=== PATIENT | male | born 1985 | race Caucasian/White ===

== ENCOUNTER → 2022-11-07 15:49 | Outpatient (CLI) | payer OTHER, SELFPAY ==
--- NOTE | ~2022-11-07 | XR_ITS ---
EXAM: XR abdomen/kub 1V DATE: 11/07/2022 16:20 HISTORY: Calculus of kidney . COMPARISON: None available. FINDINGS: Clear lung bases. Normal bowel gas pattern. No organomegaly. 11 mm calcification projectin g over the medial aspect of the right kidney midpole. Degenerative change in the lumbar spine. IMPRESSION: Right nephrolithiasis. Comparison to outside studies would be helpful, if available. Reviewed, dictated and finalized at location K. IMPRESSION: Right nephrolithiasis. Comparison to outside studies would be helpf ul, if available.
== END ==
PROVIDERS: PCP Internal Medicine; Visit Provider Nurse Practitioner Adult Health
DX: N20.0 Calculus of kidney (principal)
CPT/HCPCS: 74018

== ENCOUNTER 2022-11-11 10:35 | Day surgery (SDC) | payer OTHER, SELFPAY ==
[2022-11-11] VITALS (7 sets, daily range): BP systolic 109–149; BP diastolic 68–91; PULSE 88–107; RESP 16–20; TEMP 36.8–36.9; O2SAT 95–99; BMI 32.3
--- NOTE | ~2022-11-11 | XR_ITS ---
Supine and upright views of the abdomen Clinical history: Lithotripsy Findings: Bowel gas pattern is nonspecific. No evidence for obstruction or free air. 9 mm stone prese nt at the right renal pelvis region or proximal right ureter. Suspected additional right upper pole r enal stones.. Osseous structures are intact. Impression: 9 mm stone at the right renal pelvis or proximal right ureter. Probable additional right upper pole renal stones. Reviewed, dictated and finalized at location M. Impression: 9 mm stone at the right renal pelvis or proximal right ureter. Probable additional right upper pole renal stones.
--- NOTE | 2022-11-11 08:58 | PC.NURSE ---
Report to the Outpatient Waiting Room, entrance under the green pavilion located off [facility], at time 1030 on date 11/11/22. Planned Procedure Time: 1230. Time changes happen often and if your time is changed the preop area will call you the afternoon before. - You and your visitor will be asked to self-screen and do not enter if you have any COVID symptoms. - Only one visitor is requested with a max of two and NO children visitors are allowed at this time. - The patient visitor may be requested to leave or wait in car when not with patient due to distancing restrictions. - A mask is optional within the hospital at this time. Patients may have clear liquids (water, carbonated beverages, clear teas, apple juice) until 3 hours prior to surgery with a maximum of 20 ounces. - No food from midnight until time of surgery Take the following medications with a SIP of water the morning of surgery: LORAZEPAM, PAIN PILL DO NOT STOP ANY OF YOUR OTHER PRESCRIPTION MEDICATIONS PRIOR TO SURGERY?EXCEPT THE FOLLOWING Medications to discontinue per physician: N/A Date to take last dose: N/A Please no make-up, nail ivorian, hairspray, perfume, deodorant, or body powder the day of surgery. No jewelry (including any body piercings) or valuables the day of surgery, leave them at home. Please take a shower or bath the night before, or the morning of, surgery with an antibacterial soap. Wear comfortable, loose fitting clothing. - Jewelry must be removed prior to entering the operating room. Rings and piercings that are not removed may be cut off. - The hospital will not accept responsibility for valuables. - Please leave all valuables, including medications, at home the day of surgery. If you are going home after surgery, a licensed automation driver must drive you home. - NO public transportation without another adult if you receive anesthesia. - We recommend that an adult stay with you for 24 hours following discharge. - We also recommend that you do not drive, make important decision, drink alcoholic beverages, or take any drugs that were not prescribed by your health care provider for at least 24 hours after your discharge time. Follow any additional instructions given to you from your surgeon. If you or anyone in your household have experienced Covid symptoms in the past week, please notify your surgeon or the nurse liaison at the phone number below for possible testing. Telephone instructions given to PT - KATLYN MTZ and asked if any additional questions and then verbalized understanding. Patient advised to call surgeon office or pre surgery nurse liaison [phone] if any additional questions.
[2022-11-11] MEDS: LACTATED RINGERS 1,000 ML 30 ML IV CONT ×2 (11:00→13:50)
[2022-11-11 11:08] LABS: Appearance Urine Clear (Clear); Bacteria Urine None Seen /hpf; Bilirubin Urine Negative (Negative); Blood Urine 1+ (Negative); Color Urine Yellow (Yellow); Glucose Urine UA Negative (Negative); Ketones Urine Negative (Negative); Leukocyte Esterase Ur Negative LEU/UL (Negative); Nitrate Urine Negative (Negative); Non Pathogenic Casts 0-2; Protein Urine Trace mg/dL (Negative); Specific Grav Ur 1.022 (1.001-1.035); Squamous Epithelial Cell Urine None seen /hpf (Few); Urobilinogen Urine 0.2 mg/dL (<2.0); WBC Urine 0-5 /hpf; pH Urine 5.5 (5.0-9.0)
[2022-11-11 11:16] LABS: Add Urine Microscopic? YES
[2022-11-11 11:23] LABS: Prothrombin Time 12.6 Seconds (11.1-14.7)
[2022-11-11 11:25] LABS: Partial Thromboplastin Time 28.3 SECONDS (22.3-36.8)
--- NOTE | 2022-11-11 12:41 | WPDANESEPPF ---
Anes - Initial Pre Proc Eval Procedure: Operation Date: 11/11/22 12:30 Proposed Procedures p Right Extracorporeal Shock Wave Lithotripsy - Hua De Jesus MD Date/Time: 11/11/22 12:41 Surgeon: uHa De Jesus MD Pre Op Diagnosis: renal stones Patient Data Age: 37 Gender: M Height: 1.83 m Weight: 102.9 kg Last Vital Signs Temp 36.9 C 11/11/22 11:09 Pulse 96 11/11/22 11:09 Resp 16 11/11/22 11:09 BP 126/75 11/11/22 11:09 Pulse Ox 98 11/11/22 11:09 O2 Del Method Room Air 11/11/22 11:09 Allergies Allergy/AdvReac Type Severity Reaction Status Date / Time gabapentin AdvReac Severe Other Verified 11/11/22 10:39 Home Medications Medication Instructions Recorded Confirmed Type hydrocodone 7.5 mg-acetaminophen 1 tablet PO BID PRN Pain 11/11/22 11/11/22 History 325 mg tablet lorazepam 1 mg tablet 1 mg PO BID PRN Anxiety 11/11/22 11/11/22 History Laboratory Tests 11/11/22 11/11/22 10:53 11:04 PT 12.6 Seconds Seconds (11.1-14.7) INR 1.0 APTT 28.3 SECONDS SECONDS (22.3-36.8) Urine Color Yellow (Yellow) Urine Appearance Clear (Clear) Urine pH 5.5 (5.0-9.0) Ur Specific [place] 1.022 (1.001-1.035) Urine Protein Trace mg/dL mg/dL (Negative) Urine Glucose (UA) Negative mg/dL mg/dL (Negative) Urine Ketones Negative mg/dL mg/dL (Negative) Ur Blood (Man) 1+ H (Negative) Urine Nitrate Negative (Negative) Urine Bilirubin Negative (Negative) Urine Urobilinogen 0.2 mg/dL mg/dL (<2.0) Leukocyte Esterase Rfl Negative MORENO/UL MORENO/UL (Negative) Urine RBC 6-10 /hpf H /hpf (0-2) Urine WBC 0-5 /hpf /hpf Ur Squamous Epith Cells None seen /hpf /hpf (Few) Urine Bacteria None seen /hpf /hpf Urine Casts 0-2 Patient hx anesthesia problems: none Family hx anesthesia problems: none Results Review: All pre-operative results and documents have been reviewed as part of the pre-operative evaluation. [facility] Social History Social History Smoking packs per day: 0.75 Smoking cigarettes per day: 15.0 Years smoked: 15 Smoking pack-years: 11.25 Smoking status: Current every day smoker Tobacco type: cigarettes Alcohol intake: never Substance use: never Substance use type: does not use Living arrangements: with family Spiritual care concerns: No Anes - Eval Final PreProcedure Day of Procedure 11/11/22 12:41 Patient weight: obese Heart: regular rate and rhythm Lungs: decreased breath sounds Airway: Mallampati scale class II Neurological: alert and oriented Last oral intake: >/= 8 hours ASA classification: III Emergent: no Anesthetic plan: proceed Anesthesia type and monitoring: general LMA and standard monitoring Results Review: All pre-operative results and documents have been reviewed as part of the pre-operative evaluation. Informed Consent: The patient's anesthetic plan and its attendant risks and benefits were discussed with the patient/family/POA. Questions were solicited and answers provided to the satisfaction of the patient/family/POA.
--- NOTE | 2022-11-11 12:53 | WPDHPUPDATE1 ---
History and Physical Update Update Date/Time: 11/11/22 12:53 History and Physical has been reviewed, including an updated exam of the patient. There are NO changes in the patient's condition. Risks, benefits, and alternatives have been discussed and questions answered. Patient agrees to proceed with procedure.
[2022-11-11] MEDS: ceFAZolin 2 GM/D5W 50 ML 2 GM/50 ML BAG IVPB (12:54)
--- NOTE | 2022-11-11 13:24 | W.PM.PROC2 ---
Procedure Note - Detailed Date of Procedure 11/11/22 Pre-op Diagnosis Right renal stones Post-op Diagnosis Same Procedure Performed Right [facility] Surgeon Hua De Jesus MD Anesthesia General Description of Procedure The patient was brought to the operative suite where he was placed in the supine position on the Dornier lithotripsy table. The focal point of the lithotripter was placed at a 9-10mm right renal calculus. A total of 2500 shocks were delivered at a power setting of 4. There appeared to be good fragmentation of the stone. The patient tolerated the procedure well and was taken to the recovery room in good condition. Drains No Packing No Pathology None sent Complications No immediate complications
[2022-11-11] MEDS: fentaNYL CITRATE INJ (*CRX) 100 MCG/2 ML VIAL 25 MCG IV PUSH ×4 (14:06→14:19)
[2022-11-11] MEDS: oxyCODONE HCL (*CRX) 5 MG TAB IR PO (14:59)
== END 2022-11-11 15:35 | disposition home or self-care (01) ==
LOC: ANHSURGERY 15:41
PROVIDERS: PCP Internal Medicine; Visit Provider Urology
PROC: (CPT 50590; principal; 2022-11-11 12:30)
DX: N20.0 Calculus of kidney (principal); R31.9 Hematuria, unspecified; F17.210 Nicotine dependence, cigarettes, uncomplicated; E66.9 Obesity, unspecified; Z68.30 Body mass index [BMI] 30.0-30.9, adult
CPT/HCPCS: 50590; 36415; 74018; 81001; 85610; 85730; A9270; J0690; J1100; J2250; J2405; J2704; J3010; J7120

== ENCOUNTER 2022-11-24 10:34 | Emergency (ER) | payer OTHER, SELFPAY ==
--- NOTE | ~2022-11-24 | CT_ITS ---
EXAMINATION: CT abdomen pelvis w con DATE: 11/24/2022 14:24 INDICATION: Right abdominal pain. TECHNIQUE: Computed tomography (CT) of the abdomen and pelvis was performed with 100 mL Omnipaque 350 intravenous contrast. Automated exposure control and iterative reconstruction technique were employe d. The dose-length product was 707.12 mGy-cm. COMPARISON: None. FINDINGS: The visualized portions of the lung bases demonstrate mild atelectasis. No pleural effusion . The heart size is normal. No pericardial effusion. The liver, gallbladder, spleen, pancreas, adrena l glands, and left kidney are normal. There are 5 stones in right kidney measuring up to 4 mm. There is mild right hydronephrosis. There is a 6 mm stone in proximal right ureter. The appendix measures u p to 8 mm in diameter. The blind end of the appendix measures 6 mm in diameter. There are no patholog ically enlarged lymph nodes. There is no free intraperitoneal fluid. There is moderate lumbar spondyl osis. IMPRESSION: 1. 6 mm stone in proximal right ureter with mild right hydronephrosis. 2. Nonobstructing right kidney stones. 3. Appendiceal diameter of 8 mm, but no inflammation to suggest appendicitis. Reviewed, dictated and finalized at location A.
--- NOTE | ~2022-11-24 | XR_ITS ---
EXAMINATION: XR abdomen/kub 1V INDICATION: Right ureteral stone TECHNIQUE: Supine views of the abdomen were obtained on 2 radiographs. COMPARISON: 11/11/[address] from today FINDINGS: A 6 mm stone projects in the proximal right ureter between the right L3 and L4 transverse p rocesses. There is mild right hydronephrosis. Contrast is seen to progress beyond the stone into the distal right ureter. The bowel gas pattern is normal. The visualized lung bases are clear. IMPRESSION: 1. 6 mm stone proximal right ureter with mild right hydronephrosis. Reviewed, dictated and finalized at location L.
[2022-11-24 10:35] VITALS: BP 141/91; PULSE 83; RESP 18; TEMP 36.6; O2SAT 100
[2022-11-24 10:49] LABS: Basophils Absolute Auto 0.1 K/mm3 (0.0-0.1); Basophils Percent Auto 0.5 % (0.2-1.2); Eosinophils Absolute Auto 0.1 K/mm3 (0-0.3); Eosinophils Percent Auto 0.8 % (0-4.4); Hematocrit 48.6 % (42.0-52.0); Hemoglobin 16.5 g/dL (14.0-18.0); Immature Granulocyte Absolute 0.05 K/mm3 (0.00-0.031); Immature Granulocyte Percent A 0.4 % (0-0.5); Lymphocytes Absolute Auto 2.88 K/mm3 (0.9-3.2); Lymphocytes Percent Auto 22.1 % (18.3-44.2); Mean Corpuscular Hemoglobin 30.4 pg (26-34); Mean Corpuscular Volume 89.5 fl (80-100); Mean Platelet Volume 9.3 fl (7.4-10.4); Monocytes Absolute Auto 0.6 K/mm3 (0.1-0.6); Monocytes Percent Auto 4.5 % (2.6-8.5); Neutrophils Absolute Auto 9.3 K/mm3 (1.3-6.7); Neutrophils Percent Auto 71.7 % (45.5-73.1); Platelet Count Result 345 k/mm3 (150-375); Red Blood Count 5.43 M/mm3 (4.6-6.20); Red Cell Distribution Width 12.7 % (11.5-14.5)
[2022-11-24 10:59] LABS: Alanine Aminotransferase 35 U/L (6-50); Albumin Level 4.7 g/dL (3.5-5.1); Alkaline Phosphatase 76 U/L (38-126); Anion Gap 7 mmol/L (8-16); Aspartate Amino Transferase 29 U/L (17-59); Bilirubin,Total 0.6 mg/dL (0.2-1.3); Blood Urea Nitrogen 16 mg/dL (9-20); Calcium 9.1 mg/dL (8.4-10.2); Carbon Dioxide 28 mmol/L (22-30); Chloride 105 mmol/L (98-107); Estimated CRCL calculation 123 ml/min; Estimated Glomerular Filt Rate > 60; Glucose 104 mg/dL (65-110); Lipase 33 U/L (23-300); Potassium 4.4 mmol/L (3.4-5.0); Sodium 140 mmol/L (137-145)
--- NOTE | 2022-11-24 13:56 | ED.ABDPAIN ---
HPI - Abdominal Pain General Chief Complaint: Abdominal Pain <MILAGRO Everett Last Filed: 11/24/22 18:44> Stated Complaint: abd pain, N/V/D <Rickey Rolle PA-C - Last Filed: 11/24/22 18:44> Time Seen by Provider: 11/24/22 13:35 <Rickey oRlle PA-C - Last Filed: 11/24/22 18:44> Source: patient <MILAGRO Everett Last Filed: 11/24/22 18:44> Mode of arrival: ambulatory <MILAGRO Everett Last Filed: 11/24/22 18:44> Limitations: no limitations <MILAGRO Everett Last Filed: 11/24/22 18:44> History of Present Illness HPI narrative: This is a 37-year-old male with PMH of right renal stones and recent lithotripsy who presents to the ED with chief complaint of right lower quadrant pain onset x 1 week and worse today. Patient states that he had a lithotripsy a couple weeks ago for a right renal stone. His pain and symptoms had been improving over the past week. States yesterday he was feeling fine but today the pain started this morning while he was sitting at home. Reports pain started in the right lower quadrant and there is some radiation into the right lower back and right flank. Patient also reports N/V/D today. Reports several episodes of vomiting and diarrhea. Denies any hematemesis or bloody stools. Denies fevers, chills. Denies urinary symptoms. <Rickey Rolle PA-C - Last Filed: 11/24/22 18:44> Related Data Home Medications: Home Medications Medication Instructions Recorded Confirmed hydrocodone 7.5 mg-acetaminophen 1 tablet PO BID PRN Pain 11/11/22 11/11/22 325 mg tablet lorazepam 1 mg tablet 1 mg PO BID PRN Anxiety 11/11/22 11/11/22 <MILAGRO Everett Last Filed: 11/24/22 18:44> Allergies/Adverse Reactions: Allergies Allergy/AdvReac Type Severity Reaction Status Date / Time gabapentin AdvReac Severe Other Verified 11/24/22 13:27 <Rickey Rolle PA-C - Last Filed: 11/24/22 18:44> Review of Systems Review of Systems: CONSTITUTIONAL: Denies fever, chills, or sweats. EYES: Denies visual changes, redness, or discharge. ENT: Denies rhinorrhea, congestion, sore throat, or otalgia. CARDIOVASCULAR: Denies chest pain, palpitations, or edema. RESPIRATORY: Denies cough or dyspnea. GASTROINTESTINAL: Endorses abdominal pain, nausea, vomiting, and diarrhea. GENITOURINARY: Denies dysuria or hematuria. SKIN: Denies rash or itching. MUSCULOSKELETAL: Denies back pain, joint pain, or myalgia. NEUROLOGIC: Denies headache, numbness, dizziness, or weakness. PSYCHIATRIC: Denies anxiety or depression. <Rickey Rolle PA-C - Last Filed: 11/24/22 18:44> [facility] Social History Social History: Social History Smoking packs per day: 0.75 Smoking cigarettes per day: 15.0 Years smoked: 15 Smoking pack-years: 11.25 Smoking status: Current every day smoker Tobacco type: cigarettes Alcohol intake: never Substance use: never Substance use type: does not use Living arrangements: with family Spiritual care concerns: No <Rickey Rolle PA-C - Last Filed: 11/24/22 18:44> Exam Narrative: GENERAL: Well-appearing, well-nourished, and in no acute distress. HEAD: Normocephalic, atraumatic. EYES: PERRLA and EOMI. ENT: Nares clear, no rhinorrhea or epistaxis. Mucous membranes moist. Oropharynx without tonsillar hypertrophy exudate or other lesions. NECK: Supple. No adenopathy or masses. CHEST: No respiratory distress. Clear to auscultation. No wheezes rales or rhonchi HEART: Regular rate and rhythm. No murmur heard. Normal peripheral pulses. ABDOMEN: Right lower quadrant tenderness present. Negative McBurney's point. Negative Castellanos sign. Negative flank tenderness bilaterally. Soft, nondistended, normal active bowel sounds. No peritoneal signs are present. EXTREMITIES: Normal range of motion. No edema. SKIN: Warm, dry, no rash. No bruising. NEURO: Alert and oriented x3. No f
[2022-11-24] MEDS: MORPHINE SULFATE (*CRX) 4 MG/ML INJ IV PUSH (14:06)
[2022-11-24] MEDS: ONDANSETRON INJ 4 MG/2 ML VIAL IV PUSH (14:06)
--- NOTE | 2022-11-24 14:10 | PC.NURSE ---
pt to ct via wheelchair.
[2022-11-24 14:53] LABS: Appearance Urine Cloudy (Clear); Bacteria Urine None Seen /hpf; Bilirubin Urine Negative (Negative); Blood Urine 3+ (Negative); Color Urine Yellow (Yellow); Glucose Urine UA Negative (Negative); Ketones Urine Negative (Negative); Leukocyte Esterase Ur Trace LEU/UL (Negative); Mucus Urine Present /lpf; Need Manual Microscopic Reviewed; Nitrate Urine Negative (Negative); Protein Urine 1+ mg/dL (Negative); RBC Urine >100 /hpf (0-2); Specific Grav Ur 1.019 (1.001-1.035); Squamous Epithelial Cell Urine None seen /hpf (Few); pH Urine 5.5 (5.0-9.0)
[2022-11-24 15:19] LABS: Add Urine Microscopic? YES
== END 2022-11-24 15:39 | disposition home or self-care (01) ==
PROVIDERS: Emergency Medicine; Emergency Provider Physician Assistant; PCP Internal Medicine
DX: N13.2 Hydronephrosis with renal and ureteral calculous obstruction (principal); F17.210 Nicotine dependence, cigarettes, uncomplicated
CPT/HCPCS: 36415; 74018; 74177; 80053; 81001; 83690; 85025; 87086; 96374; 96375; 99284; J2270; J2405; Q9967

== ENCOUNTER → 2022-12-14 17:54 | Outpatient (CLI) | payer OTHER, SELFPAY ==
--- NOTE | ~2022-12-14 | XR_ITS ---
Supine and upright views of the abdomen Clinical history: Right renal stone COMPARISON: 11/24/2022 Findings: Bowel gas pattern is nonspecific. No evidence for obstruction or free air. No abnormal mass lesion or calcification is seen. Osseous structures are intact. Impression: No significant abnormality is seen. Reviewed, dictated and finalized at [facility]. Impression: No significant abnormality is seen.
== END ==
PROVIDERS: PCP Internal Medicine; Visit Provider Nurse Practitioner Adult Health
DX: N20.0 Calculus of kidney (principal)
CPT/HCPCS: 74018